=== PATIENT | female | born 1985 | race Asian ===

== ENCOUNTER 2023-10-16 08:33 | Outpatient (CLI) | payer OTHER ==
[2023-10-16 09:03] LABS: ESTIMATED AVERAGE GLUCOSE 117 mg/dL (70-100); HEMOGLOBIN A1c% 5.7 % (4.27-6.07)
[2023-10-16 09:08] LABS: CHOL/HDL RATIO 4.1 (<4.4); CHOLESTEROL 149 mg/dL; GTT GLUCOSE,FASTING 105 mg/dL (74-109); HDL CHOLESTEROL 36 mg/dL; LDL CHOLESTEROL,CALCULATED 91 mg/dL; LDL/HDL RATIO 2.5 (<4.4); TRIGLYCERIDES 111 mg/dL (48-352); VLDL CHOLESTEROL 22 mg/dL
[2023-10-16 09:22] LABS: THYROID STIMULATING HORMONE 2.22 uIU/mL (0.34-5.60)
== END 2023-10-16 08:34 | disposition home or self-care (01) ==
LOC: LAB 08:33
PROVIDERS: ATTEND Obstetrics & Gynecology
DX: Z13.220 Encounter for screening for lipoid disorders (principal); Z86.32 Personal history of gestational diabetes; Z13.29 Encounter for screening for other suspected endocrine disorder
CPT/HCPCS: 36415; 80061; 82951; 83036; 83525; 83721; 84443

== ENCOUNTER 2023-10-25 12:43 | Outpatient (CLI) | payer OTHER ==
--- NOTE | 2023-10-25 14:17 | Ultrasound Report ---
PROCEDURE: Pelvic w/Transvaginal INDICATIONS: IRREGULAR MENSES, POLYCYSTIC OVARY SYNDROME TECHNIQUE: Real-time scanning was performed of the pelvic organs, with image documentation. Additional endovagi nal scanning was necessary due to incomplete visualization of the adnexal and endometrial structures by transabdominal scanning. COMPARISON: None. FINDINGS: Uterus: Uterus is anteverted and normal in size at 9.2 x 4.3 x 5.3 cm. The myometrium is heterogene ous with subendometrial cystic changes in the lower uterine segment which extend into the cervix. Th e endometrium measures 3 mm in combined thickness. IUD is appropriately positioned. Nabothian cysts. Cervix and vagina are otherwise normal. Ovaries: The right ovary measures 2.8 x 1.7 x 1.9 cm, with a calculated ovarian volume of 4.8 cc. T he left ovary measures 2.5 x 1.2 x 1.3 cm, with a calculated ovarian volume of 2 cc. The ovaries hav e a normal sonographic appearance. Less than 12 follicles can be seen in each ovary. No adnexal mas ses are seen. No cystic lesions measuring greater than 3 cm. Other: No pathologic free abdominal or pelvic fluid. IMPRESSION: 1.IUD is a appropriately positioned. Endometrial thickness is 3 mm. 2.Normal sonographic appearance of the bilateral ovaries. 3.Myometrium is heterogeneous with subendometrial cystic changes in the lower uterine segment which e xtend into the cervix. Findings are nonspecific and may be seen in the setting of adenomyosis. Reviewed by: Sara Morgan MD on 10/25/2023 2:16 PM PDT Approved by: Sara Morgan MD on 10/25/2023 2:16 PM PDT Station ID: [id number]
== END 2023-10-25 12:44 | disposition home or self-care (01) ==
LOC: DI 12:43
PROVIDERS: ATTEND Obstetrics & Gynecology
DX: N85.8 Other specified noninflammatory disorders of uterus (principal); N92.6 Irregular menstruation, unspecified; Z97.5 Presence of (intrauterine) contraceptive device

== ENCOUNTER 2023-12-29 07:15 | Day surgery (SDC) | payer OTHER ==
[~2023-12-29 07:15] MED LIST: ATROPINE ABBOJECT 1 MG/10 ML SYRINGE IVP PRN; DEXAMETHASONE 4 MG/ML VIAL ONE; LIDOCAINE-MPF 2% 5 ML VIAL ONE; MIDAZOLAM 2 MG/2 ML VIAL ONE; NALOXONE 0.4 MG/ML VIAL IVP PRN; ONDANSETRON 4 MG/2 ML VIAL IVP PRN; ONDANSETRON 4 MG/2 ML VIAL ONE; PROPOFOL 200 MG/20 ML VIAL IVP ONE; SEVOFLURANE 250 ML LIQUID INH ONE; ceFAZolin 2 GM VIAL ONE; ePHEDrine 50 MG/ML VIAL IVP PRN; fentaNYL 100 MCG/2 ML VIAL IVP PRN; fentaNYL 100 MCG/2 ML VIAL ONE; metroNIDAZOLE 500 MG/100 ML 500 MG/100 ML BAG ONE
[2023-12-29] MEDS: ACETAMINOPHEN 325 MG TABLET PO ONE (07:30)
[2023-12-29] MEDS: LACTATED RINGERS 1,000 ML IV ONE ×3 (07:36→10:54)
[2023-12-29 07:55] LABS: HCG UR QUAL NEGATIVE
--- NOTE | 2023-12-29 07:57 | ANESTHESIA ---
Pre-Anesthesia VS, & Labs - Diagnosis Adenomyosis - Procedure Vaginal Hysterectomy Height: 4 ft 11 in Weight (kg): 62 kg Body Mass Index: 27.6 BMI Classification: Overweight - Is Patient ?: No Home Medications and Allergies Home Medications: Ambulatory Orders Acetaminophen [Tylenol] 650 mg PO Q6H PRN 12/24/23 Fluticasone [Flonase] 1 sprays ISMAEL BID PRN 12/24/23 Ibuprofen [Motrin] 600 mg PO Q6H PRN 12/24/23 Loratadine [Claritin] 10 mg PO DAILY 12/24/23 Active Medications Atropine Sulfate (Atropine Abboject 1 Mg/10 Ml Syringe) 0.5 mg IVP Q5M PRN PRN Reason: Bradycardia Stop: 12/30/23 06:49 Ephedrine Sulfate (Ephedrine 50 Mg/Ml Vial) 10 mg IVP Q5M PRN PRN Reason: HYPOTENSION Stop: 12/30/23 06:49 Fentanyl (Fentanyl 100 Mcg/2 Ml Vial) 25 - 50 mcg IVP Q5M PRN PRN Reason: BREAKTHROUGH PAIN (2nd Choice) Stop: 12/30/23 06:49 Hydromorphone HCl (Hydromorphone 0.5 Mg/0.5 Ml Syringe) 0.2 - 0.6 mg IVP Q5M PRN PRN Reason: PAIN (First Choice) Stop: 12/30/23 06:49 Lactated Ringer's (Lr) 1,000 mls @ 100 mls/hr IV .Q10H BLANCHE Stop: 12/29/23 16:59 Morphine Sulfate (Morphine 2 Mg/Ml Carpuject) 2 - 4 mg IVP Q5M PRN PRN Reason: PAIN (3rd Choice) Stop: 12/30/23 06:49 Naloxone HCl (Naloxone 0.4 Mg/Ml Vial) 0.1 mg IVP Q2M PRN PRN Reason: RESP RATE <8 Stop: 12/30/23 06:49 Ondansetron HCl (Ondansetron 4 Mg/2 Ml Vial) 4 mg IVP ONCE PRN PRN Reason: N/V (First Choice) Stop: 12/30/23 06:49 Acetaminophen [Tylenol] 650 mg PO Q6H PRN 12/24/23 Fluticasone [Flonase] 1 sprays ISMAEL BID PRN 12/24/23 Ibuprofen [Motrin] 600 mg PO Q6H PRN 12/24/23 Loratadine [Claritin] 10 mg PO DAILY 12/24/23 Allergies/Adverse Reactions: Allergies Allergy/AdvReac Type Severity Reaction Status Date / Time nickel Allergy Rash Verified 10/30/23 11:00 Anes History & Medical History - Medical History Cardiovascular: reports: None Pulmonary: reports: None Gastrointestinal: reports: None Urinary: reports: None Musculoskeletal: reports: None Endocrine/Autoimmune: reports: None Skin: reports: Eczema - Surgical History Gynecologic: reports: section Exam General: Alert Dental: WNL, Other (WNL. Pt has gap in bottom right side.) Mallampati classification: II Thyromental Distance: 4-6 cm Plan Anesthesia Type: General Consent for Procedure(s) Verified and Reviewed: Yes Code Status: Attempt Resuscitation ASA classification: 1-Healthy patient Is this case an emergency?: No
[2023-12-29 08:06] LABS: BASOPHILS % (AUTO) 0.8 %; EOSINOPHILS # (AUTO) 0.1 10^3/uL (0.0-0.7); EOSINOPHILS % (AUTO) 2.3 %; HCT - HEMATOCRIT 41.2 % (37.0-47.0); HGB - HEMOGLOBIN 12.6 g/dL (12.0-16.0); LYMPHOCYTES # (AUTO) 1.7 10^3/uL (1.5-3.5); MEAN CORPUSCULAR HEMOGLOBIN 20.4 pg (27.0-31.0); MEAN CORPUSCULAR HGB CONC 30.6 g/dL (32.0-36.0); MEAN CORPUSCULAR VOLUME 66.8 fL (81.0-99.0); MEAN PLATELET VOLUME 9.7 fL (7.9-10.8); MONOCYTES # (AUTO) 0.3 10^3/uL (0.0-1.0); MONOCYTES % (AUTO) 5.6 %; NEUTROPHILS # (AUTO) 3.1 10^3/uL (1.5-6.6); NEUTROPHILS % (AUTO) 59.1 %; PLT - PLATELET COUNT 290 10^3/uL (130-450); RED BLOOD COUNT 6.17 10^6/uL (4.20-5.40); WHITE BLOOD COUNT 5.2 x10^3/uL (4.8-10.8)
[2023-12-29 08:08] LABS: SLIDE REVIEW? Indicated
[2023-12-29] MEDS ORDERED: BUPIVACAINE 0.25% PF 30 ML VIAL ONE (08:18)
[2023-12-29 08:24] LABS: PLATELET ESTIMATE, MANUAL NORMAL (130-450,000) (NORMAL); PLATELET MORPHOLOGY NORMAL APPEARANCE (NORMAL); RBC MORPHOLOGY (MULTIPLE) 2+ MICROCYTOSIS (NORMAL)
[2023-12-29] MEDS ORDERED: PHENYLEPHRINE HCL 0.5 MG/5 ML AMPULE ONE (09:02)
[2023-12-29] MEDS: BUPIVACAINE 0.25% PF 30 ML VIAL SUBQ ONE ×2 (09:06)
[2023-12-29] MEDS: HYDROmorphone 0.5 MG/0.5 ML SYRINGE IVP PRN (10:20)
[2023-12-29] MEDS ORDERED: KETOROLAC 15 MG/ML VIAL ONE (10:31)
[2023-12-29] MEDS: KETOROLAC 30 MG/ML VIAL IVP ONE (10:33)
[2023-12-29] MEDS: HYDROmorphone 1 MG/ML CARPUJECT ONE (10:38)
--- NOTE | 2023-12-29 10:58 | OPERATIVE REPORT ---
Operative Report - General Procedure Date: 12/29/23 - Procedure Note Anesthesia Technique: General LMA - Other Other Information/Narrative: Pre-op Diagnosis: DEMOND 2, adenomyosis Post-op Diagnosis: same Procedure: vaginal hysterectomy with removal of bilateral fallopian tubes Tailing Machine Operator in OR: Maria Luz Gaxiola MD My bookkeeper assistant was present for the entire case. She performed with retraction and suctioning, allowing me to see what I was working on. Anesthesia: Michael Mike CRNA Findings: 90 gram uterus. normal appearing ovaries and fallopian tubes. Indications for Procedure: Patient is a 38 year-old woman, s/p 1 vaginal delivery and one c section. Currently has Mirena IUD but without it has horrible periods. would like to not be using the hormones. DEMOND 2 found on cervix so needed a procedure. preferred hysterectomy to LEEP. very small chance of Cancer in her cervix. understands she will continue to need pap smears for 25+ years. Procedure: The patient was taken to the operating room where she was correctly identified. 2.5 gm of Metrocef was given. She was placed in a dorsal supine position, and general LMA anesthesia was administered without difficulty. She was then placed in high lithotomy position with her feet in Servando stirrups. She was prepped and draped in the normal sterile fashion. A posterior weighted speculum was placed in the vagina, and the cervix was grasped with two single-tooth tenacula. 0.25% Marcaine was injected circumferentially around the cervix. A bovie was then used to make a circumferential incision around the cervix. Pizarro scissors were then used to gently dissect the anterior and posterior surfaces of the cervix, allowing for the bladder and rectum to be dissected away. The posterior peritoneum was entered. A stitch was placed to bring the peritoneum to the posterior cuff edge and this was held around the weighted speculum to hold it in place. Lauren clamps were used bilaterally to clamp the uterosacral ligaments. These pedicles were transected and then suture ligated with 0 Vicryl. These pedicles were then affixed to the cuff edge. The cardinal ligaments were similarly clamped cut and tied off with 0 Vicryl suture and affixed to the cuff. The anterior peritoneum was then entered. Subsequent bites were taken bilaterally along the broad ligament with each pedicle being transected and suture ligated with 0 Vicryl. The last pedicles were transected and the uterus was removed intact. All pedicles were noted to be hemostatic. Irrigation was done. The fallopian tubes were identified and appeared normal. I grapsed behind the tube with a clamp and the tube was removed with scissors and handed off. This was tied off with an 0 vicryl suture. Similar procedure was done on the other side. The ovaries appeared normal. The anterior cuff edge was brought together with the anterior peritoneum with a figure of 8 stitch. The vaginal cuff edges were then closed with 0 Vicryl in a running baseball type stitch, turning in the raw edges. Excellent hemostasis was noted. All instruments were then removed from the vagina. She was taken out of lithotomy position, gently awakened and taken to the recovery room in stable condition. IVF: 600 cc Specimens: uterus and bilateral fallopian tubes. Drains: none Complications: None Counts: Correct x 2
[2023-12-29] MEDS: oxyCODONE 5 MG TABLET PO PRN (11:47)
[2023-12-29] MEDS: KETOROLAC 30 MG/ML VIAL IVP SCH (11:51)
[2023-12-29 11:58] VITALS: O2SAT 98
--- NOTE | 2023-12-29 12:33 | PHARMACY PROGRESS NOTE ---
- Best Possible Medication History Admit Date and Time: Processed by: Nursing Medications reviewed in ED?: No Medication History completed: Yes Patient Interview: Completed Secondary Source(s): Insurance records As the person ultimately responsible for medication therapy, providers are able to order a medication from an existing home medication list in [facility] via the "Reconcile Routine" prior to Confirmation of that medication by database support. Such practice is discouraged except when the physician, in their clinical judgment, deems that a medical need exists for a medication without regard to previous use.
--- NOTE | 2023-12-29 12:47 | ANESTHESIA POST OP EVALUATION ---
Anesthesia Post Eval - Post Anesthesia Eval Vitals: Last Vital Signs Temp 36.4 C L 12/29/23 12:20 Pulse 62 12/29/23 12:20 Resp 16 12/29/23 12:20 BP 112/68 12/29/23 12:20 Pulse Ox 98 12/29/23 12:20 O2 Flow Rate CV Function Including HR & BP: Stable Pain Control: Satisfactory Nausea & Vomiting: Negative Mental Status: Baseline Respiratory Status: Airway Patent Hydration Status: Satisfactory Anesthesia Complications: None
[2023-12-29] MEDS: MORPHINE 2 MG/ML CARPUJECT IVP PRN (13:00)
[2023-12-29] MEDS: LACTATED RINGERS 1,000 ML IV SCH (14:02)
[2023-12-29] MEDS: ONDANSETRON 4 MG/2 ML VIAL IVP PRN (14:35)
[2023-12-29 17:00] VITALS: BP 121/83
== END 2023-12-29 18:35 | disposition home or self-care (01) ==
LOC: SDS 07:15 → MS2 10:36 → SDS 18:35
PROVIDERS: ATTEND Obstetrics & Gynecology
PROC: 0UT77ZZ Resection of Bilateral Fallopian Tubes, Via Natural or Artificial Opening (ICD-10-PCS; 2023-12-29)
PROC: 0UT97ZZ Resection of Uterus, Via Natural or Artificial Opening (ICD-10-PCS; principal; 2023-12-29 08:30)
DX: N87.1 Moderate cervical dysplasia (principal); N80.03 Adenomyosis of the uterus; E88.819 Insulin resistance, unspecified
CPT/HCPCS: 58262; 81025; 85025; A9270; J1170; J2372; J3490; J7120